=== PATIENT | female | born 1985 | race Native Hawaiian/Other Pacific Islander ===

== ENCOUNTER 2020-08-01 10:05 | Day surgery (SDC) | payer BC ==
[2020-07-30 12:08] LABS: PLATELET COUNT 274 K/uL (152-353)
[~2020-08-01] VITALS: Ht 30.5 cm; Wt 0.5 kg
== END 2020-08-01 12:13 | disposition home or self-care (01) ==
LOC: OR 10:05
PROVIDERS: ATTEND Internal Medicine Gastroenterology
PROC: 0DB68ZZ Excision of Stomach, Via Natural or Artificial Opening Endoscopic (ICD-10-PCS; principal; 2020-08-01)
PROC: 0DB88ZZ Excision of Small Intestine, Via Natural or Artificial Opening Endoscopic (ICD-10-PCS; 2020-08-01)
PROC: 0D738ZZ Dilation of Lower Esophagus, Via Natural or Artificial Opening Endoscopic (ICD-10-PCS; 2020-08-01)
DX: K21.00 Gastro-esophageal reflux disease with esophagitis, without bleeding (principal); K22.2 Esophageal obstruction; K29.50 Unspecified chronic gastritis without bleeding; R13.19 Other dysphagia; R10.13 Epigastric pain; R11.0 Nausea; Z20.828 Contact with and (suspected) exposure to other viral communicable diseases
CPT/HCPCS: 80053; 85027; 87635; J2704; U0003

== ENCOUNTER 2021-04-11 08:51 | Outpatient (CLI) | payer BC, OTHER ==
[~2021-04-11] VITALS: Ht 149.9 cm; Wt 61.7 kg
[2021-04-11 09:35] VITALS: BP 116/69; TEMP 98.4
--- NOTE | 2021-04-11 10:48 | NUR ---
1038 INFUSION COMPLETE NO ADVERSE REACTION NOTED.
== END 2021-04-11 20:02 | disposition home or self-care (01) ==
LOC: INF 08:51
PROVIDERS: ATTEND Family Medicine
DX: Z23 Encounter for immunization (principal); U07.1 COVID-19
CPT/HCPCS: 96365; M0244